=== PATIENT | female | born 1975 | race Caucasian/White ===

== ENCOUNTER 2020-09-03 11:47 | Inpatient (IN) | payer BC ==
[~2020-09-03] VITALS: Ht 157.5 cm; Wt 55.5 kg
--- NOTE | 2020-09-03 13:00 | NUR ---
assumed care of pt, resting in quiroga bed 8 with gown. pt is a/a/ox4, gcs:15, even and unlabored respirations seen, skin is w/p/d/i. pt c/o 8/10 right flank and rlq pain x several months, worsening. also c/o "throat feeling tight" sore right jaw/ear, and n/v since yesterday. 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 hx of appy, hysterectomy, choly, and tonsilectomy. established iv, labs drawn, awaiting pt to provide urine sample. will continue to monitor closely.
[2020-09-03 13:16] LABS: BASOPHIL % 1.3 % (0.2-1.3); PLATELET COUNT 255 x10^3mcL (179-408); RED CELL DISTRIBUTION WIDTH 13.2 % (12.3-17.7)
[2020-09-03 13:34] LABS: T3 TOTAL 1.05 ng/mL
[2020-09-03 13:35] LABS: ALBUMIN 3.9 g/dL (3.4-5.0); BILIRUBIN TOTAL 0.5 mg/dL (0.20-1.00); CALCIUM 8.2 mg/dL (8.5-10.1); CARBON DIOXIDE 31.3 mmol/L (21-32); CREATININE SERUM 1.1 mg/dL (0.6-1.0); POTASSIUM SERUM 3.7 mmol/L (3.5-5.1); TOTAL PROTEIN, SERUM 6.5 g/dL (6.4-8.2)
[2020-09-03 13:38] LABS: FREE T4 1.06 ng/dL (0.76-1.46); FREE THYROXINE INDEX 2.3 ug/dL (1.4-4.5); T4(THYROXINE) 7.1 ug/dL (4.7-13.3)
--- NOTE | 2020-09-03 14:30 | NUR ---
pt ambulated to with steady gait to void. provided urine sample.
[2020-09-03 15:50] LABS: microscopic required? NO
[2020-09-03 16:12] LABS: UA SPECIFIC GRAVITY 1.015 (1.005-1.035); urine erythrocyte NEGATIVE (NEGATIVE)
--- NOTE | 2020-09-03 16:24 | NUR ---
plans for admission pending.
--- NOTE | 2020-09-03 16:51 | NUR ---
spoke with pt's sister, josé luis, on telephone. updated regarding pt's condition and plan of care.
[2020-09-03 17:56] LABS: CHOLESTEROL/HDL RATIO 1.8
--- NOTE | 2020-09-03 18:14 | NUR ---
provided pt with liquid contrast solution to drink for ct.
--- NOTE | 2020-09-03 18:42 | NUR ---
medicated pt with toradol, zofran and morphine for 8 abd pain. continued iv ns at 150cc/hr. awaiting room upstairs for admission and pending ct.
--- NOTE | 2020-09-03 19:52 | NUR ---
PT AMBULATED TO AND FROM RESTROOM WITH STEADY GAIT.
--- NOTE | 2020-09-03 20:15 | NUR ---
REPORT GIVEN TO DONI PHILLIPS TO ASSUME CARE OF PT. PT AMNA AMEZCUA HAS NOT BEEN RESULTED AT THIS TIME. AWAITING FOR RESULT PRIOR TO TRANSFERRING PT TO TELE FLOOR.
--- NOTE | 2020-09-03 20:25 | NUR ---
PT TO CT VIA [facility].
--- NOTE | 2020-09-03 20:56 | NUR ---
RECEIVED PT FROM ED VIA [facility], CAME IN DUE TO WEAKNESS, DIFFICULTY SWALLOWING X1.5 WEEKS AND MULTIPLE SITE PAIN. AAOX4. DENIES HEADACHE/DIZZINESS. HAS BLURRY VISION X2 MONTHS, HAS 6/10 RIGHT EAR, NECK, TAILBONE, RIGHT FLANK PAIN DESCRIBED DEEP ACHING. DENIES HEARING PROBLEMS/DISCHARGES. HAS MILD RIGHT FACIAL SWELLING. STATED THAT SHE HAS BEEN EATRING MASHED POTATOES FOR THE PAST 1.5 YEARS AND THE LAST 1.5 WEEKS, SHE HAS BEEN HAVING DIFFICULTY SWALLOWING. STATED THAT HER LAST BM WAS 4-5 DAYS AGO, C/O BLOATING, ABDOMEN IS SOFT, C/O NAUSEA, STATED THAT SHE VOMITED X1 TODAY AND YESTERDAY. DENIES ABDOMINAL PAIN AT THIS TIME. STATED THAT SHE HAS NIGHT SWEATS, HOT FLUSHES BLOODY NOSE LAST NIGHT, MILD SOB ON EXERTION, AND FATIGUE. IV SITE PATENT AND INTACT. SIDE RAILS UPX2. CALL LIGHT ON REACH. PRIMARY NURSE TR AT BEDSIDE FOR CONTINUITY OF CARE
--- NOTE | 2020-09-03 21:04 | NUR ---
PT TRASNFERRED TO TELE BED 254B VIA [facility] ON MANAGER OF TAX WITH MYSELF AND EMT VÍCTOR AT PT SIDE. PT AMBULATED TO TELE DONI SWARTZ AT PT SIDE TO ASSUME CARE OF PT.
[2020-09-03 21:30] VITALS: BP 132/80
[2020-09-04 05:13] VITALS: BP 105/69
--- NOTE | 2020-09-04 06:33 | NUR ---
Pt received from ED mid-shift AOX4 with c/o abd and lower back pain voiced. Pain management implemented throughout shift as per Md order. Pt reports minimal relief, requiring alternating doses of ordered medications. Comfort and safety measures maintained.
--- NOTE | 2020-09-04 07:03 | NUR ---
REPORT TAKEN FROM YARD OPERATOR NURSE, PER REPORT THE PATIENT IS IN NO ACUTE DISTRESS, ALERT AND ORIENTED X 4, ON PAIN CONTROL MEDICATIONS PO AND IV FOR EAR, THROAT, AND STOMACH PAIN. WILL CONTINUE TO MONIOR.
[2020-09-04 07:12] LABS: CALCIUM 7.9 mg/dL (8.5-10.1); CARBON DIOXIDE 27.6 mmol/L (21-32); CHLORIDE SERUM 107 mmol/L (98-107); CREATININE SERUM 0.9 mg/dL (0.6-1.0); GFR1 > 60 mL/min; GLUCOSE SERUM 61 mg/dL (74-106); POTASSIUM SERUM 3.5 mmol/L (3.5-5.1); SODIUM SERUM 138 mmol/L (136-145)
[2020-09-04 08:07] VITALS: BP 110/68
[2020-09-04 09:00] LABS: BASOPHIL % 0.7 % (0.2-1.3); PLATELET COUNT 194 x10^3mcL (179-408); RED CELL DISTRIBUTION WIDTH 13.1 % (12.3-17.7)
[2020-09-04 09:04] LABS: rbc morphology (normal/abnorm) NORMAL (NORMAL)
[2020-09-04 10:15] VITALS: BP 121/85
[2020-09-04 12:48] VITALS: BP 101/58
[2020-09-04 14:03] VITALS: Ht 157.5 cm; Wt 55.5 kg
[2020-09-04 16:36] VITALS: BP 151/70
[2020-09-04 20:27] VITALS: BP 119/74
[2020-09-05 05:18] VITALS: BP 110/77
--- NOTE | 2020-09-05 06:22 | NUR ---
Pt received in bed awake and alert with respiratory rate and effort even and unlabored farnaz. C/o radiating back pain and abd pain voiced throughout shift. therapeutic interventions implemented per MD order with + outcome. comfort and safety measures maintained.
[2020-09-05 07:02] LABS: BASOPHIL % 1.1 % (0.2-1.3); PLATELET COUNT 197 x10^3mcL (179-408)
[2020-09-05 07:16] LABS: CALCIUM 8.4 mg/dL (8.5-10.1); CARBON DIOXIDE 30.7 mmol/L (21-32); CHLORIDE SERUM 105 mmol/L (98-107); CREATININE SERUM 0.9 mg/dL (0.6-1.0); GFR1 > 60 mL/min; GLUCOSE SERUM 61 mg/dL (74-106); POTASSIUM SERUM 3.4 mmol/L (3.5-5.1); SODIUM SERUM 142 mmol/L (136-145)
[2020-09-05 09:07] VITALS: BP 118/70
--- NOTE | 2020-09-05 11:30 | NUR ---
PATIENT REFUSED THE EGD, I NOTIFIED DR RODRIGUEZ, AND GI LAB. ALSO I TOLD DR CUI. SHE WAS VERY EMOTIONAL AND JUST DIDNT WANT IT DONE.
[2020-09-05 11:34] VITALS: BP 126/85
--- NOTE | 2020-09-05 14:44 | NUR ---
PATIENT IS ANXIOUS AND IS WONDERING IF SHE SHOULD JUST LEAVE. I CALLED DR GLEZ, HE WILL BE THE GI CONSULT NOW. AND I ASKED HIM IF HE WILL BE COMING IN TODAY TO SEE HER, AND HE SAID HE WOULD SEE HER THIS EVENING WHEN HIS OFFICE CLOSES. I NOTIFIED BRODY, AND SHE WAS HAPPY TO HAVE A PLAN GOING FORWARD. SHE ASKED ME TO CALL HER SISTER HER SISTER IS PROTECTIVE OF HER AND IS GETTING ANGRY AND TRYING TO GET HER ANOTHER HOSPITAL BECAUSE BRODY IS CRYING AND ANXIOUS THINKING NOBODY IS DOING ANYTHING TO HELP HER. BOTH THE SISTER AND BRODY THE PATIENT, ARE GOOD WITH THE PLAN GOING FORWARD.
[2020-09-05 16:44] VITALS: BP 114/74
--- NOTE | 2020-09-05 19:21 | NUR ---
NURSING CO-SIGN THE DOCUMENTATION ENTERED BY THE IP HAS BEEN REVIEWED. REVIEWED/CO-SIGNED BY: Nicolle Sapp RN DOCUMENTATION DONE BY: MARIA ALEJANDRA EDGE RN
[2020-09-05 20:46] VITALS: BP 122/78
[2020-09-06 06:24] VITALS: BP 102/56
--- NOTE | 2020-09-06 07:00 | NUR ---
PATIENT HAS BEEN NPO SINCE MIDNIGHT IN PREPARATION FOR PROCEDURES, CONSENT HAS BEEN SIGNED AND CHECKLIST COMPLETED, BOWEL PREP COMPLETED. PATIENT IV CLEAN AND INTACT, PATIENT ON ROOM AIR, REPORTS SOME NAUSEA.
--- NOTE | 2020-09-06 07:12 | NUR ---
PT HAD A UNEVENTFUL NIGHT. BOWEL PREP COMPLETED PER MD ORDER WITH CLEAR OUT NOTED. COMFORT AND SAFETY MEASURES MAINTAINED.
[2020-09-06 08:16] LABS: BASOPHIL % 0.6 % (0.2-1.3); PLATELET COUNT 230 x10^3mcL (179-408); RED CELL DISTRIBUTION WIDTH 12.9 % (12.3-17.7)
[2020-09-06 08:39] VITALS: BP 134/54
[2020-09-06 08:40] LABS: CALCIUM 8.3 mg/dL (8.5-10.1); CARBON DIOXIDE 28.3 mmol/L (21-32); CHLORIDE SERUM 109 mmol/L (98-107); CREATININE SERUM 0.9 mg/dL (0.6-1.0); GFR1 > 60 mL/min; POTASSIUM SERUM 4.3 mmol/L (3.5-5.1); SODIUM SERUM 144 mmol/L (136-145)
[2020-09-06 09:11] LABS: GLUCOSE SERUM 52 mg/dL (74-106)
--- NOTE | 2020-09-06 13:47 | NUR ---
JONO MARION CALLED AND GAVE REPORT AFTER THE PATIENT'S EGD/COLONSOCOPY. PATIENT WAS BACK IN ROOM AT 1400, TELE MONITOR APPLIED AND VS'S TAKEN. AAO TIMES 4. SITE LFA CDI, PATENT. NO C/O PAIN. COOPERATIVE.
[2020-09-06 14:00] VITALS: BP 113/71
--- NOTE | 2020-09-06 14:00 | NUR ---
DARRYL RECIEVED REPROT AT 1347, PATIENT WAS BROUGHT UP TO FLOOR AT 1400, VS STABLE, PATIENT REPORTS NO DIZZINES,NO DIFFICULTY BREATHING, NO CHEST PAIN, AND NO BLEEDING. REATTACHED PATIENT TO TELE MONITOR, PATIENT VOIDED. WILL CONTNIUE TO MONITOR.
--- NOTE | 2020-09-06 15:41 | NUR ---
Initial Nutrition Assessment: 237B CORNELIOJOSE, BRODY JOANN 45F Nursing trigger: unintentional weight loss > 10 lbs in past month, poor PO > 3 days Consult: Dysphagia, eats mashed potatoes Dx: Generalized weakness PMHx: GIST cancer PSHx: small bowel resection cholecystectomy, tonsillectomy, Hysterectomy Labs: (09/06) WBC 3.5L, K 3.4L, BUN 5L, BG 60L, Ca 8.4L, (09/03) HDL 99H Meds: Zofran, Sodium, Atarax, Hawthorne, Suprep bowel, Miralax, Protonix, Elavil, Senokot, Colace Diet: Regular; previously on NPO d/t pending EGD/Colonoscopy; previously on Clear liquid PO intake since admission: Refused meal x 2 noted, (09/05) L: 20% Ht: 157.48cm/62in Wt: 55.537kg/122.2lbs BMI: 22.4kg/m2 Bed scale: 135.3lbs IBW: 50kg/110lbs %IBW: 111.1% UBW: not able to obtain Age: 45 Food Allergies: none noted Edema: no signs of edema Last BM: 09/06; pt on bowel prep, stool currently clear Skin: skin intact Arturo: 18 Per H and P (09/03), Pt is 45-year-old Female with history of gastrointestinal stromal cancer from home presents to ER with multiple complaints. She said has back pain for past few months. Now pain is intolerable and addition to that she has ear pain, throat pain, difficulty to swallow mainly for solids, stucking sensation after swallow, stomach bloating. She said either she will have diarrhea or constipation. now for past 4 days not passed stool. Pt presents gradual onset, intermittent, decreased appetite. Loss of 30 lbs in 3 months. Symptoms associated with Nausea. She used to take chemotherapy 2 yrs ago, but she left after that and not on any treatment lately. Her PCP informed her to begin chemotherapy, but patient refused secondary to financial compliations and the side effects. Denies any fever, cough, dysuria, or rash, cough, covid contacts Pt was admitted with dx: generalized weakness 2/2 chemotherapy vs. malignancy vs. anxiety, H/o gastric cancer, CRISTIAN, Hypocalcemia RD Note (09/06/2020) During visit, pt appeared to be very anxious and was not interested in participating in assessment. Pt stated that all she wants to focus on is treating her medical conditions right now and would not like to talk about anything else. EGD and colonoscopy done, and pt was put on regular diet. Per pt's RN, pt had been having abd pain, nausea, and back pain. Additionally, pt was only eating mashed potatoes and Kinyarwanda fries in the past 1.5 years because it was the only food she can tolerate. Pt had cut out many foods from her diet. Pt also has difficult swallowing and swallow evaluation pending. Problem with: N/V/D/C: Nausea, abdominal pain Problems with: Chewing: Swallowing: pt reported swallowing trouble Current appetite: poor d/t meal refusal Recent wt change: not able to obtain %wt change: not able to obtain Vitamin/Supplement use: none noted Special diet at home: soft diet, pt eating mashed potatoes for 1.5 years noted in admission system assessment Physical activity: not able to obtain Nutrition education given (specify specific nutrition education and handout given): Not given at this time d/t pt refused to participate in assessment Food-drug interactions? Education given? n/a Estimated Nutritional Needs Based on current body weight (55kg) Energy: 5233-1732 kcal/day (30-35 kcal/kg repletion for weight loss, GIST Cancer) Protein: 82-110 g/day (1.5-2 g/kg repletion for weight loss, GIST Cancer) Fluid: 2384-5620 mL/day (1 mL/kcal) Nutrition Diagnosis: 1. Malnutrition r/t GI dysfunction related food intolerance and restricted diet a/e/b pt reported only eating mashed potatoes and Kinyarwanda fries in the past 1 and year per RN, and 30 lbs weight loss in 3 months was documented in H and P (2/). 2. Swallowing difficulty r/t pathophysiological causes a/e/b pt reported swallowing difficulty to RN and swallow evaluation pending. Intervention 1. Continue with swallow evaluation 2. Recommend regular diet with texture and liquid consistency recommended by MANAGING CONSULTANT CLINICAL PROFESSOR 3. Recommend Ensure BID and monitor tolerance. 4. Recommend MVI QD Monitor/Evaluate Goal: PO intake at least 75% of estimated needs Monitor: PO intake, Labs, GI function, ONS intake F/U in 2-3 days as high risk 09/08-
--- NOTE | 2020-09-06 15:42 | NUR ---
1. Continue with swallow evaluation 2. Recommend regular diet with texture and liquid consistency recommended by VENEER STACKER 3. Recommend Ensure BID and monitor tolerance. 4. Recommend MVI QD Recommendation provided to NP. Merrill. Will follow up the next day
[2020-09-06 16:29] VITALS: BP 105/69
--- NOTE | 2020-09-06 18:13 | NUR ---
PT WAS SEEN FOR DYSPHAGIA. PT WAS ABLE TO SAFELY SWALLOW PUREE DIET WITH THIN LIQUID. PT HAD MILD DIFFICULTY WITH MASTICATION SKILLS. RECOMMENDATION PUREE DIET WITH THIN LIQUID.
--- NOTE | 2020-09-06 19:02 | NUR ---
PATIENT IS ON ROOM AIR, IV IN LAC, NS RUNNING AT 100ML/HOUR, PATIENT HAS RECIVED PAIN MEDICATION, PAIN IS MILD AND MANAGED. LEFT PATIENT RESTING, ALL NEEDS ATTENDED TO.
--- NOTE | 2020-09-06 19:35 | NUR ---
RECEIVED REPORT FROM DAY DONI BESS. PT INITIALLY ASLEEP, EASILY AROUSED TO NAME. ALERT/ORIENTED X4. IN NAD. LUNGS CTA, ON RA. NSR ON TELE, +PULSES, NO EDEMA. +BS X4. LEFT PIV SITE BENIGN, TO NS AT 100ML/HR. UPDATED ON POC. DENIES PAIN, N/V CURRENTLY. SAFETY CHECKS COMPLETED, CALL LAGOS WITHIN REACH. HS CARE ONGOING.
[2020-09-06 20:27] VITALS: BP 125/65
[2020-09-07 05:34] VITALS: BP 105/61
--- NOTE | 2020-09-07 07:20 | NUR ---
PATIENT A/OX4, AWAKE AND ALERT, SITTING UP IN BED. NO C/O PAIN OR SOB NOTED. PATIENT ON RA, BREATHING REG AND UNLABORED. TELE #[id number] HR [id number]. DENIES ANY CHEST PAIN. IV TO 20G C/D/I AND PATENT. PATIENT COMPLAINING OF SWELLING TO L HAND. IVF PAUSED, WILL CONTINUE TO MONITOR. COMFORT AND SAFETY MEASURES IN PLACE. CALL LIGHT WITHIN REACH. WILL CONTINUE WITH PLAN OF CARE.
[2020-09-07 07:59] LABS: BASOPHIL % 1.2 % (0.2-1.3); PLATELET COUNT 201 x10^3mcL (179-408); RED CELL DISTRIBUTION WIDTH 13.2 % (12.3-17.7)
[2020-09-07 08:29] LABS: CALCIUM 7.5 mg/dL (8.5-10.1); CHLORIDE SERUM 106 mmol/L (98-107); CREATININE SERUM 0.8 mg/dL (0.6-1.0); GFR1 > 60 mL/min; GLUCOSE SERUM 78 mg/dL (74-106); POTASSIUM SERUM 3.5 mmol/L (3.5-5.1); SODIUM SERUM 140 mmol/L (136-145)
[2020-09-07 08:34] VITALS: BP 153/118
[2020-09-07] MEDS ORDERED: ELA25 PO (09:32)
[2020-09-07] MEDS ORDERED: PREVACID30 M2 PO (09:53)
[2020-09-07] MEDS ORDERED: CARAFATE1 GM PO (09:54)
[2020-09-07 11:28] VITALS: BP 153/118
--- NOTE | 2020-09-07 12:14 | NUR ---
DISCHARGE EDUCATION GIVEN TO PATIENT. PATIENT DISAGREED WITH CC ON PATIENT VISIT REPORT STATING SHE CAME IN FOR "GENERALIZED WEAKNESS". PATIENT ALSO STATED SHE WANTED A THOROUGH EXPLANATION TO WHY SHE SHOULD FOLLOW UP WITH HER ONCOLOGIST AND OF RESULTS OF PROCEDURES. ELECTROTYPE FINISHER GIO CONTACTED. PATIENT ASKED FOR CONTACT INFO FOR DR POWER. WILL GIVE PATIENT OFFICE NUMBER. INSTRUCTED PATIENT TO KEEP TELE MONITOR ON UNTIL TIME OF DC. IV STILL INTACT. WILL CONTINUE TO MONITOR PATIENT INTERMITTENTLY.
[2020-09-07 12:35] VITALS: BP 124/86
--- NOTE | 2020-09-07 13:11 | NUR ---
PATIENT STILL INSISTING TO HAVE ATTENDING SEE HER REGARDING RESULTS TO HER TESTS. PATIENT STATED SHE CALLED PATIENT SERVICES AND STATED THAT "EVERYTHING ON MY PATIENT VISIT REPORT IS WRONG, I FEEL UNHEARD." REASSURED PATIENT THAT ASSOCIATE DIRECTOR FINANCIAL AID IS AWARE. WILL CONTINUE TO MONITOR PATIENT INTERMITTENTLY.
--- NOTE | 2020-09-07 13:53 | NUR ---
PATIENT EXPRESSED THAT SHE DOESNT WANT TO LEAVE BECAUSE HER INFORMATION ON THE PATIENT REPORT IS INACCURATE. SHE CALLED PATIENT SERVICES AND SHE WANTS HER REPORT TO BE CHANGED. SHE EXPRESSED NOT WANTING THIS TO HAPPEN TO OTHER PATIENTS BC SHE WAS TURNED AWAY IN ED AND SHE HAD TO "FIGHT TO BE ADMITTED". PATIENT IS CALING PATIENT SERVICES AGAIN AND AWAITING CALL BACK.
--- NOTE | 2020-09-07 14:15 | NUR ---
PATIENT REFUSED TO SIGN FOR PATIENT VISIT REPORT. PATIENT AWAITING FOR RIDE TO BE DC. DISCHARGE TEACHING PROVIDED. PATIENT VERBALIZED UNDERSTANDING. ALSO VERBALIZED FRUSTRATIONS. WILL CONTINUE TO MONITOR PATIENT INTERMITTENTY.
== END 2020-09-07 14:26 | disposition home or self-care (01) | DRG 684 ==
LOC: ED 11:47 → DU 16:50
PROVIDERS: Emergency Medicine; Internal Medicine; ADMIT Family Medicine; ATTEND Family Medicine
PROC: 0DB68ZX Excision of Stomach, Via Natural or Artificial Opening Endoscopic, Diagnostic (ICD-10-PCS; principal; 2020-09-06 11:00)
PROC: 0DJD8ZZ Inspection of Lower Intestinal Tract, Via Natural or Artificial Opening Endoscopic (ICD-10-PCS; 2020-09-06 11:00)
DX: N17.9 Acute kidney failure, unspecified (principal); Z20.822 Contact with and (suspected) exposure to COVID-19; Z85.028 Personal history of other malignant neoplasm of stomach; Z90.49 Acquired absence of other specified parts of digestive tract; Z90.710 Acquired absence of both cervix and uterus; K21.9 Gastro-esophageal reflux disease without esophagitis; R13.10 Dysphagia, unspecified; E83.51 Hypocalcemia; F41.9 Anxiety disorder, unspecified; T45.1X5A Adverse effect of antineoplastic and immunosuppressive drugs, initial encounter; Y92.89 Other specified places as the place of occurrence of the external cause
CPT/HCPCS: 43235; 45378; 82962; 84439; 86308; 87804; 92526-GN; 92610-GN; C9113; G0378; J1200; J1610; J1885; J2175; J2250; J2270; J2310; J2405; J3010; J3490; J7030; Q9966; Q9967